=== PATIENT | male | born 1980 | race Caucasian/White ===

== ENCOUNTER 2017-01-25 02:39 | Emergency (ER) | payer OTHER ==
--- NOTE | ~2017-01-25 | EKG ---
PATIENT: EMANUEL GREENBERG UNIT #: [id number] Ventricular Rate: 111 BPM Atrial Rate: 111 BPM P-R Interval: 130 ms QRS Duration: 84 ms Q-T Interval: 332 ms QTC Calculation(Bezet): 451 ms P [place]: 35 degrees Calculated R [place]: -62 degrees Calculated T [place]: 52 degrees Diagnosis Line: Sinus tachycardia Diagnosis Line: Left anterior fascicular block Diagnosis Line: Poor R wave progression questionable lead position Diagnosis Line: or body habitus Borderline ECG Diagnosis Line: When compared with ECG of 20-AUG-2013 13:16, Diagnosis Line: (unconfirmed) Diagnosis Line: Left anterior fascicular block is now Present Diagnosis Line: Septal infarct is now Present Diagnosis Line: T wave amplitude has increased in Inferior leads Diagnosis Line: Nonspecific T wave abnormality, improved in Diagnosis Line: Lateral leads Diagnosis Line: Confirmed by NADER MILLS MD ([id number]) on 01/26/2017 Diagnosis Line: 12:04:10 PM INTERPRETING MD: LINA ELLIS
== END 2017-01-25 03:23 | disposition home or self-care (01) ==
LOC: CED 02:39
DX: T40.1X1A Poisoning by heroin, accidental (unintentional), initial encounter (principal)
CPT/HCPCS: 82947; 93005; 96361; 96374; 99284; J2310

== ENCOUNTER 2017-01-31 05:25 | Emergency (ER) | payer OTHER | END 2017-01-31 05:30 | disposition left against medical advice (07) | LOC: CED 05:25 | DX: Z53.21 Procedure and treatment not carried out due to patient leaving prior to being seen by health care provider (principal) ==